=== PATIENT | male | born 1955 | race Caucasian/White ===

== ENCOUNTER 2023-12-20 17:33 | Emergency (ER) | payer OTHER ==
[~2023-12-20] VITALS: Ht 167.6 cm; Wt 79.4 kg
[2023-12-20 17:33] VITALS: BP_SYST 167; PULSE 60; RESP 17; TEMP 97.7; O2SAT 97
[2023-12-20 18:41] LABS: BILIRUBIN,URINE NEGATIVE (NEGATIVE); BLOOD, URINE 2+ (NEGATIVE); CLARITY/URINE CLEAR (CLEAR); COLOR,URINE YELLOW (YELLOW); GLUCOSE,URINE NEGATIVE (NEGATIVE); KETONES,URINE NEGATIVE (NEGATIVE); LEUKOCYTE ESTERASE ,URINE NEGATIVE (NEGATIVE); NITRITE, URINE NEGATIVE (NEGATIVE); PROTEIN URINE NEGATIVE (NEGATIVE); UROBILINOGEN,URINE 0.2 (0.2-1.0)
[2023-12-20 19:06] LABS: BACTERIA,URINE RARE /HPF (None Seen); MUCUS,URINE None Seen /LPF (None Seen); WBC,URINE 0-3 /HPF (0-3)
[2023-12-20 20:17] VITALS: BP_SYST 160; PULSE 58; RESP 19; TEMP 98; O2SAT 96
== END 2023-12-20 20:00 | disposition home or self-care (01) ==
LOC: SED 17:33
DX: R39.15 Urgency of urination (principal); R39.11 Hesitancy of micturition; Z79.899 Other long term (current) drug therapy
CPT/HCPCS: 81000; 81001; 81015; 99283